=== PATIENT | male | born 1960 | race Caucasian/White ===

== ENCOUNTER → 2016-09-09 | Outpatient (CLI) | payer BC ==
--- NOTE | ~2016-09-09 | CR58 ---
[facility]. [facility] A Service of [facility] [place] RADIOLOGY TEXT RESULTS PATIENT: CHARLEY NELSON LOCATION: [facility] : 60 UNIT #: [id number] AGE: [address]: Alessandro Kapoor SEX: M ORDER DR: [id number] [address] [address] [id number] O MR#: [id number] Acc #: [id number] NAME: CHARLEY NELSON : 1960 SEX: M STUDY DATE/TIME: 09/09/2016 6:16 UNIT: [facility] ROOM: STUDY DESCRIPTION: CR Cervical Spine 2 or 3 Views Attending Physician: Alessandro Kapoor Ordering Physician: Kameron Henderson M.D. Primary Care Physician: Dulce Alxeis M.D. MEDICAL IMAGING REPORT This report is preliminary unless electronic signature is present. EXAM Cervical spine, 3 views. INDICATIONS Neck pain since March of 2015. COMPARISON STUDIES No comparisons. FINDINGS There is minimal grade 1 degenerative anterolisthesis of C6 on C7. There is mild midcervical spine degenerative disc space narrowing. Odontoid intact and the lateral masses are well-aligned. Minimal chronic calcification on the left. IMPRESSION Degenerative changes as described. Dictated by... Leonard Guadarrama M.D. THIS IS AN ELECTRONICALLY VERIFIED REPORT Leonard Guadarrama M.D. at 09/09/2016 3:57 PM LIAM/juan manuel TD: 09/09/2016 15:51 JOB #: [id number] MEDICAL IMAGING REPORT Page 1 of 1
--- NOTE | ~2016-09-09 | CR186 ---
[facility]. [facility] A Service of [facility] & [facility] RADIOLOGY TEXT RESULTS PATIENT: CHARLEY NELSON LOCATION: [facility] : 60 UNIT #: [id number] AGE: [address]: Alessandro Kapoor SEX: M ORDER DR: [id number] [place] [id number] O MR#: [id number] Acc #: [id number] NAME: CHARLEY NELSON : 1960 SEX: M STUDY DATE/TIME: 09/09/2016 6:16 UNIT: [facility] ROOM: STUDY DESCRIPTION: CR Lumbar Spine W Bend Min 6 V Attending Physician: Alessandro Kapoor Ordering Physician: Kameron Henderson M.D. Primary Care Physician: Dulce Alexis M.D. MEDICAL IMAGING REPORT This report is preliminary unless electronic signature is present. EXAM Lumbar spine, 4 views with flexion and extension. INDICATIONS Low back pain since March of 2015. COMPARISON No comparisons. FINDINGS Neutral view demonstrates slightly increased lumbar lordosis. Minimal multilevel degenerative disc disease. Lower lumbar spine facet arthropathy. Vertebral body heights are maintained. There is no dynamic instability on flexion/extension views. Vascular calcifications. IMPRESSION Degenerative changes as described. No dynamic instability. Dictated by... Leonard Guadarrama M.D. THIS IS AN ELECTRONICALLY VERIFIED REPORT Leonard Guadarrama M.D. at 09/10/2016 3:46 PM LIAM/juan manuel TD: 09/09/2016 16:03 JOB #: [id number] MEDICAL IMAGING REPORT Page 1 of 1
== END | disposition home or self-care (01) ==
LOC: SRAD 06:00
DX: M47.896 Other spondylosis, lumbar region (principal); M54.2 Cervicalgia; M50.323 Other cervical disc degeneration at C6-C7 level; M40.56 Lordosis, unspecified, lumbar region; M46.96 Unspecified inflammatory spondylopathy, lumbar region; M53.86 Other specified dorsopathies, lumbar region
CPT/HCPCS: 72040; 72114